=== PATIENT | female | born 1970 ===

== ENCOUNTER 2018-05-26 07:01 | Emergency (ER) | payer OTHER ==
[2018-05-26 07:14] VITALS: BMI 28.1
[2018-05-26 07:19] VITALS: O2SAT 98
[2018-05-26] MEDS ORDERED: Sodium Chloride 0.9% 1,000 ML IV STA (07:23)
--- NOTE | 2018-05-26 07:43 | ED PDOC ---
HPI: Abdomen Time Seen by Provider: 05/26/18 07:20 Chief Complaint (Nursing): Abdominal Pain Chief Complaint (Provider): abdominal pain History Per: Patient History/Exam Limitations: no limitations Onset/Duration Of Symptoms: Days (yesterday) Current Symptoms Are (Timing): Still Present Location Of Pain/Discomfort: Epigastric Associated Symptoms: Fever (subjective), Nausea, Vomiting, Diarrhea, Loss Of Appetite Additional Complaint(s): Lex Frank is a 47 year old female, with a past medical history of glaucoma, who presents to the emergency department complaining of an epigastric pain associated with nausea, vomiting and diarrhea ongoing since yesterday. Patient also states she is not tolerating PO and reports a subjective fever. She denies any blood in stool or vomitus. No further medical complaints. PMD: None provided. Past Medical History Reviewed: Historical Data, Nursing Documentation, Vital Signs Vital Signs: Last Vital Signs Temp 99.1 F 05/26/18 07:12 Pulse 108 H 05/26/18 07:12 Resp 20 05/26/18 07:12 BP 123/85 05/26/18 07:12 Pulse Ox 98 05/26/18 07:16 - Medical History Other PMH: glaucoma - Surgical History Surgical History: Appendectomy - Family History Family History: States: Unknown Family Hx - Home Medications Home Medications: Ambulatory Orders Medication Instructions Recorded Famotidine [Pepcid] 20 mg PO Q12 #20 tab 05/26/18 Ondansetron [Zofran] 4 mg PO Q8H #10 tab 05/26/18 - Allergies Allergies/Adverse Reactions: Allergies Allergy/AdvReac Type Severity Reaction Status Date / Time No Known Allergies Allergy Verified 05/26/18 07:16 Review of Systems ROS Statement: Except As Marked, All Systems Reviewed And Found Negative Constitutional: Positive for: Fever (subjective) Gastrointestinal: Positive for: Nausea, Vomiting (non bloody), Abdominal Pain (epigastric), Diarrhea (non bloody), Other (loss of appetite) Physical Exam - Reviewed Nursing Documentation Reviewed: Yes Vital Signs Reviewed: Yes - Physical Exam Appears: Positive for: No Acute Distress Head Exam: Positive for: ATRAUMATIC, NORMAL INSPECTION, NORMOCEPHALIC Skin: Positive for: Normal Color, Warm, Dry Eye Exam: Positive for: Normal appearance, EOMI, PERRL ENT: Positive for: Other (mucous membranes dry) Neck: Positive for: Normal, Painless ROM, Supple Cardiovascular/Chest: Positive for: Regular Rate, Rhythm. Negative for: Murmur Respiratory: Positive for: Normal Breath Sounds. Negative for: Respiratory Distress Gastrointestinal/Abdominal: Positive for: Tenderness (epigastric tenderness). Negative for: Other (RLQ tenderness) Back: Positive for: Normal Inspection. Negative for: L CVA Tenderness, R CVA Tenderness, Vertebral Tenderness Extremity: Positive for: Normal ROM (upper and lower extremities). Negative for: Deformity, Swelling Neurologic/Psych: Positive for: Alert, Oriented - Laboratory Results Result Diagrams: 05/26/18 07:31 05/26/18 07:31 - ECG O2 Sat by Pulse Oximetry: 98 (RA) Pulse Ox Interpretation: Normal - Progress Re-evaluation Time: 10:59 Condition: Improved (Tolerated PO challenge) Medical Decision Making Medical Decision Making: Time: 07:20 Initial Impression: Most likely gastroenteritis. Will obtain blood work, hydrate with IV fluids, give Zofran and Pepcid for symptoms. Initial Plan: --CMP --Lipase --Urine --Urine dipstick --CBC w/ differential --Pepcid 20 mg IVP --NaCl 1,000 ml IV 200 mls/hr --Zofran Inj 4 mg IVP --Reevaluation Scribe Attestation: Documented by Gustavo Celeste, acting as a scribe for Marcello Alcantara MD Provider Scribe Attestation: All medical record entries made by the Scribe were at my direction and personally dictated by me. I have reviewed the chart and agree that the record accurately reflects my personal performance of the history, physical exam, medical decision making, and the department course for this patient. I have also personally directed, reviewed, and agree with the discharge instructions and disposition. Disposition - Clinical Impression Clinical Impression: Gastroenteritis - Patient ED Disposition Is Patient to be Admitted: No Counseled Patient/Family Regarding: Studies Performed, Diagnosis, Need For Followup, Rx Given - Disposition Referrals: [facility] [Outside] Disposition: Routine/Home Disposition Time: 11:00 Condition: FAIR Prescriptions: Famotidine [Pepcid] 20 mg PO Q12 #20 tab Ondansetron [Zofran] 4 mg PO Q8H #10 tab Instructions: Gastroenteritis (ED) Forms: [facility] (Cambodian) Print Language: ALBANIAN
[2018-05-26 08:11] LABS: BASO % 0.2 % (0.0-2.0); LYMPH # 0.8 K/uL (1.0-4.3); LYMPH % 10.7 % (20.0-40.0); MEAN CELL VOLUME 93.8 fl (81.0-99.0); MEAN CORPUSCULAR HEMOGLOBIN 30.8 pg (27.0-31.0); MEAN CORPUSCULAR HGB CONC 32.8 g/dL (33.0-37.0); MEAN PLATELET VOLUME 7.1 fl (7.2-11.7); MONO # 0.7 K/uL (0.0-0.8); NEUT # 6.2 K/uL (1.8-7.0); NEUT % 80.1 % (50.0-75.0); NRBC % 0.1 % (0.0-0.0); RBC 4.24 Mil/uL (3.80-5.20); RED CELL DISTRIBUTION WIDTH 13.1 % (11.5-14.5); WHITE BLOOD COUNT 7.8 K/uL (4.8-10.8)
[2018-05-26 08:26] LABS: ALB/GLOB RATIO 1.2 (1.0-2.1); ALBUMIN 4.4 g/dL (3.5-5.0); ALT/SGPT 24 U/L (9-52); AST/SGOT 29 U/L (14-36); BLOOD UREA NITROGEN 10 mg/dl (7-17); CALCIUM 8.6 mg/dL (8.4-10.2); GFR NON-AFRICAN AMERICAN > 60; LIPASE 39 U/L (23-300)
[2018-05-26] MEDS ORDERED: Potassium Chloride 20 mEq ER Tab PO ONE ×2 (09:50→11:05)
[2018-05-26 11:19] VITALS: BP 110/65; PULSE 72; RESP 19; TEMP 98.6
== END 2018-05-26 11:18 | disposition home or self-care (01) ==
LOC: H.ER 07:01
DX: K52.9 Noninfective gastroenteritis and colitis, unspecified (principal); H40.9 Unspecified glaucoma; Z79.899 Other long term (current) drug therapy
CPT/HCPCS: 80053; 81025; 83690; 85025; 96374; 96375; 99285; J2405; J7030